=== PATIENT | male | born 1950 | race Caucasian/White ===

== ENCOUNTER 2021-07-25 10:34 | Outpatient (CLI) | payer MEDICARE | END 2021-07-25 10:35 | disposition home or self-care (01) | LOC: CSHULT 10:34 | PROVIDERS: ATTEND Nurse Practitioner Acute Care | DX: R55 Syncope and collapse (principal); H55.00 Unspecified nystagmus | CPT/HCPCS: 93880 ==

== ENCOUNTER 2022-04-28 21:02 | Observation (INO) | payer MEDICARE ==
[2022-04-28] MEDS ORDERED: Nitroglycerin 0.4 MG TAB (25 Tab Bottle) SL PRN (21:27)
[2022-04-28] MEDS ORDERED: hydrALAZINE 20 MG/ML VIAL SLOW IVP PRN (21:27)
[2022-04-28] MEDS ORDERED: Morphine 2 MG/ML VIAL SLOW IVP PRN (21:27)
[2022-04-28 21:53] VITALS: BMI 28.6
[2022-04-28 22:08] LABS: Troponin I Less than 0.010 ng/mL (< 0.028)
[2022-04-28] MEDS ORDERED: Ondansetron PF 4 MG/2 ML Vial IVP PRN (23:08)
[2022-04-28] MEDS ORDERED: Zolpidem Tartrate 5 MG TAB PO PRN (23:08)
[2022-04-28] MEDS ORDERED: Bisacodyl 5 MG TAB PO PRN (23:08)
[2022-04-28] MEDS ORDERED: HYDROcodone/Acetaminophen 7.5/325 mg Tablet PO PRN (23:08)
[2022-04-28] MEDS ORDERED: Labetalol HCl 100 MG/20 ML VIAL SLOW IVP PRN (23:11)
[2022-04-28] MEDS ORDERED: Morphine 4 MG/ML VIAL SLOW IVP PRN (23:11)
[2022-04-28] MEDS ORDERED: traZODone HCl 50 MG TAB PO PRN (23:13)
[2022-04-28] MEDS ORDERED: Simethicone Chewable 80 MG TAB PO SCH (23:15)
[2022-04-28] MEDS ORDERED: EVOLOCUMAB 140 MG/ML SQ SCH (23:15)
[2022-04-28] MEDS ORDERED: Famotidine 20 MG TAB PO SCH (23:15)
[2022-04-28] MEDS: Sodium Chloride 0.9% 1,000 ML IV SCH (23:51)
[2022-04-29 05:30] LABS: #Monocytes 0.4 10x3/uL (0.0-1.1); #Neutrophils 5.8 10x3/uL (1.5-8.4); %Basophils 0.1 % (0.0-2.0); %Eosinophils 0.6 % (0.0-6.0); %Lymphocytes 11.4 % (18.0-47.0); %Monocytes 5.8 % (0.0-10.0); %Neutrophils 81.5 % (40.0-75.0); Mean Corpuscular HGB CONC 34.7 g/dL (32.0-36.0); Mean Corpuscular Volume 95.2 fl (81.2-95.1); Mean Platelet Volume 9.2 fl (7.4-10.4); Platelet Count 167 10x3/uL (150-450); RBC Distribution Width 15.2 % (11.5-14.5); Red Blood Cell (RBC) Count 3.94 10x6/uL (4.32-5.72); White Blood Cell (WBC) Count 7.1 10x3/uL (3.5-10.5)
[2022-04-29 05:35] LABS: ALT (SGPT) 278 U/L (8-55); AST (SGOT) 524 U/L (5-34); Albumin 3.3 g/dL (3.4-4.8); Alkaline Phosphatase 107 U/L (40-110); Anion Gap 13 mmol/L (10-20); BUN (Urea Nitrogen) 17 mg/dL (8.4-25.7); Bilirubin, Total 2.2 mg/dL (0.2-1.2); Calc. Creatinine Clearance 88 mL/min (70-130); Calcium 8.7 mg/dL (7.8-10.44); Carbon Dioxide 29 mmol/L (23-31); Cardiac Risk 3.1 (Less than 4.5); Chloride 104 mmol/L (98-107); Cholesterol 145 mg/dl (< 200 Desired); Estimated GFR 93; Globulin 2.3 g/dL (2.4-3.5); Glucose 117 mg/dL (83-110); HDL Cholesterol 47 mg/dL (>60 Neg Risk); LDL Cholesterol, Calculated 79 mg/dL; Protein, Total 5.6 g/dL (5.8-8.1); Sodium 142 mmol/L (136-145); Triglycerides 94 mg/dL (Less than 150)
[2022-04-29] MEDS ORDERED: Nitroglycerin 2% Ointment 1 INCH/1 GM Packet TOP SCH (06:00)
[2022-04-29] MEDS ORDERED: Levothyroxine Sodium 50 MCG TAB PO SCH (06:00)
[2022-04-29] MEDS ORDERED: Icosapent Ethyl 1 GM CAPSULE PO SCH (08:00)
[2022-04-29] MEDS ORDERED: Aspirin 81 mg Enteric Coated Tablet PO SCH (09:00)
[2022-04-29] MEDS ORDERED: levETIRAcetam 500 MG TAB PO SCH (09:00)
[2022-04-29] MEDS ORDERED: Aspirin Chewable 81 MG TAB PO SCH (09:00)
[2022-04-29] MEDS ORDERED: Multivit, Therapeutic 1 TAB PO SCH (09:00)
[2022-04-29] MEDS ORDERED: Cholecalciferol 1,000 UNITS (25 MCG) TAB PO SCH (09:00)
[2022-04-29] MEDS ORDERED: Enoxaparin Sodium 40 MG/0.4 ML SYRINGE SC SCH (09:00)
[2022-04-29] MEDS ORDERED: Famotidine 20 MG TAB PO SCH (09:00)
[2022-04-29] MEDS ORDERED: GARLIC 1000 MG PO SCH (09:00)
[2022-04-29] MEDS ORDERED: Clopidogrel Bisulfate 75 MG TAB PO SCH ×2 (09:00)
[2022-04-29] MEDS ORDERED: Ramipril 5 MG CAP PO SCH (09:00)
[2022-04-29] MEDS ORDERED: NIFEdipine XL 60 MG TAB PO SCH (09:00)
[2022-04-29] MEDS ORDERED: Carvedilol 25 MG TAB PO SCH (09:00)
[2022-04-29 09:34] LABS: Troponin I 0.018 ng/mL (< 0.028)
[2022-04-29] MEDS: Sodium Chloride 0.9% 1,000 ML IV SCH (13:09)
[2022-04-29 17:51] VITALS: BP 106/57; TEMP 96.9
== END 2022-04-29 18:19 | disposition home or self-care (01) ==
LOC: CSHTELE 21:02
PROVIDERS: ADMIT Internal Medicine; ATTEND Internal Medicine
DX: I25.810 Atherosclerosis of coronary artery bypass graft(s) without angina pectoris (principal); I10 Essential (primary) hypertension; E78.2 Mixed hyperlipidemia; I25.2 Old myocardial infarction; F17.290 Nicotine dependence, other tobacco product, uncomplicated; I69.90 Unspecified sequelae of unspecified cerebrovascular disease; E03.9 Hypothyroidism, unspecified; I25.5 Ischemic cardiomyopathy; R79.89 Other specified abnormal findings of blood chemistry; Z20.822 Contact with and (suspected) exposure to COVID-19; Z79.82 Long term (current) use of aspirin; Z79.02 Long term (current) use of antithrombotics/antiplatelets; Z79.899 Other long term (current) drug therapy; Z90.49 Acquired absence of other specified parts of digestive tract
CPT/HCPCS: 76705; 80053; 80061; 84484 ×2; 85025; 94760; 96374; 96375; G0378 ×2; J2270; U0003; U0005; 36415; J2405; J7050

== ENCOUNTER 2023-05-01 15:14 | Outpatient (CLI) | payer MEDICARE ==
[~2023-05-01 15:14] MED LIST: Iopamidol 300 61% 100 ML VIAL FS ONE
== END 2023-05-01 15:15 | disposition home or self-care (01) ==
LOC: CSHCT 15:14
PROVIDERS: ATTEND Family Medicine Sports Medicine
DX: R10.31 Right lower quadrant pain (principal); K57.30 Diverticulosis of large intestine without perforation or abscess without bleeding; K63.89 Other specified diseases of intestine; K44.9 Diaphragmatic hernia without obstruction or gangrene; K46.9 Unspecified abdominal hernia without obstruction or gangrene
CPT/HCPCS: 74177; 82565

== ENCOUNTER 2023-05-31 13:55 | Outpatient (CLI) | payer MEDICARE | END 2023-05-31 13:56 | disposition home or self-care (01) | LOC: CSHRAD 13:55 | PROVIDERS: ATTEND Surgery | DX: K44.9 Diaphragmatic hernia without obstruction or gangrene (principal); K21.9 Gastro-esophageal reflux disease without esophagitis; K22.4 Dyskinesia of esophagus | CPT/HCPCS: 74220 ==

== ENCOUNTER 2025-03-18 10:24 | Outpatient (CLI) | payer MEDICARE | END 2025-03-18 10:25 | disposition home or self-care (01) | LOC: CSHSLEEP 10:24 | PROVIDERS: ATTEND Family Medicine Sports Medicine | DX: G47.9 Sleep disorder, unspecified (principal); R53.83 Other fatigue; R41.89 Other symptoms and signs involving cognitive functions and awareness; E66.9 Obesity, unspecified; Z68.28 Body mass index [BMI] 28.0-28.9, adult; R06.83 Snoring; G47.00 Insomnia, unspecified; I25.10 Atherosclerotic heart disease of native coronary artery without angina pectoris; I11.9 Hypertensive heart disease without heart failure | CPT/HCPCS: 95810 ==

== ENCOUNTER 2025-05-05 07:00 | Day surgery (SDC) | payer OTHER ==
[2025-05-05] MEDS ORDERED: PHENYLEPHRINE-NS 100 MCG/ML 10 ML SYRINGE ONE (08:00)
[2025-05-05] MEDS ORDERED: Heparin 10,000 UNITS/ 10 ML VIAL ONE ×2 (08:00→10:04)
[2025-05-05] MEDS ORDERED: Lidocaine-Prilocaine 2.5% Cream 5 GM TUBE TOP SCH (08:00)
[2025-05-05] MEDS ORDERED: Lidocaine 1% (PF) 30 ML VIAL ONE (08:00)
[2025-05-05 08:11] VITALS: BP 152/78
[2025-05-05 08:33] LABS: #Basophils 0.04 10x3/uL (0.0-0.2); #Eosinophils 0.13 10x3/uL (0.0-0.5); #Monocytes 0.55 10x3/uL (0.0-1.1); #Neutrophils 5.02 10x3/uL (1.5-8.4); %Basophils 0.6 % (0.0-2.0); %Eosinophils 1.9 % (0.0-6.0); %Lymphocytes 15.2 % (18.0-47.0); %Monocytes 8.1 % (0.0-10.0); %Neutrophils 74.1 % (40.0-75.0); Hematocrit 46.5 % (38.8-50.0); Hemoglobin 15.5 g/dL (13.5-17.5); Mean Corpuscular Hemoglobin 30.7 pg (27.0-33.0); Mean Corpuscular Volume 92.1 fL (81.2-95.1); Platelet Count 253 10x3/uL (150-450); Red Blood Cell (RBC) Count 5.05 10x6/uL (4.32-5.72); White Blood Cell (WBC) Count 6.78 10x3/uL (3.5-10.5)
[2025-05-05] MEDS ORDERED: PNEUMOC 20-VAL CONJ-DIP CRM/PF 0.5 ML SYRINGE IM ONE (08:45)
[2025-05-05 08:46] LABS: Anion Gap 18 mmol/L (10-20); BUN (Urea Nitrogen) 23 mg/dL (8.4-25.7); Calc. Creatinine Clearance 0 mL/min (70-130); Calcium 9.3 mg/dL (7.8-10.44); Carbon Dioxide 27 mmol/L (23-31); Chloride 100 mmol/L (98-107); Glucose 113 mg/dL (83-110); INR-International Normal Ratio 1.0; PTT 23.7 sec (22.0-33.0); Potassium 3.9 mmol/L (3.5-5.1); Prothrombin Time 10.9 sec (9.5-12.1); Sodium 141 mmol/L (136-145)
[2025-05-05] MEDS ORDERED: Nitroglycerin 50 MG/250 ML BOT 250 ML ONE (09:48)
[2025-05-05] MEDS ORDERED: Iopamidol 300 61% 100 ML VIAL FS ONE (10:34)
[2025-05-05] MEDS ORDERED: Aspirin Chewable 81 MG TAB ONE (13:25)
== END 2025-05-05 17:05 | disposition home or self-care (01) ==
LOC: CSHSDC 07:00
PROVIDERS: ATTEND Specialist
PROC: 4A023N7 Measurement of Cardiac Sampling and Pressure, Left Heart, Percutaneous Approach (ICD-10-PCS; principal; 2025-05-05)
DX: I25.118 Atherosclerotic heart disease of native coronary artery with other forms of angina pectoris (principal); I10 Essential (primary) hypertension; E78.2 Mixed hyperlipidemia; E78.00 Pure hypercholesterolemia, unspecified; Z79.899 Other long term (current) drug therapy
CPT/HCPCS: 71045; 80048; 85025; 85347; 85610; 85730; 92920; 92978; 92979; 93005; 93010; 93459; 99152; 99153; C1725; C1753; C1760; C1769; C1887; C1894; J0461; J1644; J2250; J2720; Q9967